=== PATIENT | female | born 1975 | race Caucasian/White ===

== ENCOUNTER 2021-07-20 21:24 | Outpatient (CLI) | payer BC, SELFPAY ==
[2021-07-20 15:08] LABS: ESR 25 mm/hr (0-20)
[2021-07-20 16:11] LABS: C-Reactive Protein 0.36 mg/dL (0.0-0.3); Calcium 9.5 mg/dL (8.5-10.1)
[2021-07-21 11:41] LABS: Lyme Ab w Rflx to Lyme Confirm Negative (Negative)
[2021-07-21 14:16] LABS: Myeloperoxidase Ab IgG <0.2 U; Proteinase 3 Ab (PR3) <0.2 U
[2021-07-21 16:10] LABS: Angiotensin Converting Enzyme 31 U/L (16 - 85)
[2021-07-21 23:55] LABS: Anaplasma phagocytophilum Negative (Negative); B. miyamotoi PCR Negative (Negative); Babesia divergens/MO-1 Negative (Negative); Babesia duncani Negative (Negative); Babesia microti Negative (Negative); Ehrlichia chaffeensis Negative (Negative); Ehrlichia ewingii/canis Negative (Negative); Ehrlichia muris eauclairensis Negative (Negative)
== END 2021-07-20 21:25 | disposition home or self-care (01) ==
LOC: LBO 21:25
PROVIDERS: PCP Nurse Practitioner Family; Visit Provider Otolaryngology
DX: J34.89 Other specified disorders of nose and nasal sinuses; J38.01 Paralysis of vocal cords and larynx, unilateral; R49.0 Dysphonia
CPT/HCPCS: 36415; 82164; 85652; 87798; 82310; 83516; 86140; 86618